=== PATIENT | female | born 1955 | race Caucasian/White ===

== ENCOUNTER 2020-09-23 19:11 | Emergency (ER) | payer OTHER ==
[~2020-09-23] VITALS: Ht 167.6 cm; Wt 81.8 kg
[2020-09-23 19:22] VITALS: BP 125/77
--- NOTE | 2020-09-23 19:44 | NUR ---
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
[2020-09-23] MEDS ORDERED: ketorolac tromethamine 15mg/ml inj. IM ONE (20:05)
[2020-09-23] MEDS ORDERED: HYDROcodone/acetaminophen 5mg/325mg tablet PO ONE (20:05)
[2020-09-23] MEDS ORDERED: IBUP-1984 PO (20:24)
== END 2020-09-23 20:34 | disposition home or self-care (01) ==
LOC: ER 19:11
DX: M25.562 Pain in left knee (principal); I10 Essential (primary) hypertension; Z90.89 Acquired absence of other organs; Z90.710 Acquired absence of both cervix and uterus; Z79.899 Other long term (current) drug therapy
CPT/HCPCS: 29505; 73564; 96372; 99283; J1885

== ENCOUNTER 2022-05-09 11:22 | Emergency (ER) | payer MEDICARE, OTHER ==
[~2022-05-09] VITALS: Ht 167.6 cm; Wt 84.0 kg
[2022-05-09 12:32] LABS: CLARITY,URINE CLEAR (Clear); COLOR,URINE YELLOW (Yellow); GLUCOSE, URINE NEGATIVE (Neg); KETONES,URINE 15 mg/dl (Neg); LEUKOCYTE ESTERASE ,URINE NEGATIVE (Neg); NITRITES, URINE NEGATIVE (Neg); OCCULT BLOOD,URINE NEGATIVE (Neg); PH,URINE 5.5 (4.8-8.0); PROTEIN,URINE NEGATIVE (Neg); UROBILINOGEN,URINE 0.2 E.U/dL (0.2-1.0)
[2022-05-09 12:34] LABS: URINE HCG NEGATIVE (NEG)
[2022-05-09 12:39] LABS: UA COLLECTION TYPE VOIDED
[2022-05-09 12:44] LABS: BASOPHILS % (AUTO) 0.8 % (0-1); EOSINOPHILS # (AUTO) 0.3 X10'3 (0-0.9); EOSINOPHILS % (AUTO) 5.2 % (0-6); HEMATOCRIT 44.2 % (35.0-45.0); HEMOGLOBIN 14.7 g/dl (12.0-16.0); LYMPHOCYTES # (AUTO) 1.6 X10'3 (1.1-4.8); LYMPHOCYTES % (AUTO) 28.3 % (21-51); MEAN CORPUSCULAR HEMOGLOBIN 30.4 PG (27.0-31.0); MEAN CORPUSCULAR HGB CONC 33.3 g/dL (33.0-36.5); MEAN CORPUSCULAR VOLUME 91.3 FL (78-98); MEAN PLATELET VOLUME 7.7 FL (7.4-10.4); MONOCYTES # (AUTO) 0.4 X10'3 (0-0.9); MONOCYTES % (AUTO) 7.6 % (2-12); NEUTROPHILS # (AUTO) 3.2 X10'3 (1.8-7.7); NEUTROPHILS % (AUTO) 58.1 % (42-75); PLATELET COUNT 297 X10'3 (140-440); RED BLOOD COUNT 4.84 X10'6 (4.20-5.60); RED CELL DISTRIBUTION WIDTH 13.3 % (11.5-14.5); WHITE BLOOD COUNT 5.5 X10'3 (4.5-11.0)
[2022-05-09 12:59] LABS: ALANINE AMINOTRANSFERASE 27 U/L (12-78); ALBUMIN 4.3 G/DL (3.4-5.0); ALBUMIN/GLOBULIN RATIO 1.2 (1.1-1.5); ALKALINE PHOSPHATASE 75 IU/L (46-116); ANION GAP 12 (8-16); ASPARTATE AMINO TRANSFERASE 19 U/L (10-37); BILIRUBIN,TOTAL 0.6 MG/DL (0.1-1.0); BLOOD UREA NITROGEN 9 MG/DL (7-18); CALCIUM 9.1 MG/DL (8.5-10.1); CHLORIDE 104 MMOL/L (99-107); CREATININE 0.69 MG/DL (0.40-0.90); GLUCOSE 104 MG/DL (70-104); LIPASE 176 U/L (73-393); POTASSIUM 3.9 MMOL/L (3.5-5.1); SODIUM 144 MMOL/L (135-145); TOTAL CARBON DIOXIDE 27.8 MMOL/L (24-32); eGFR 85 ML/MIN
--- NOTE | 2022-05-09 13:24 | NUR ---
CHARGE NURSE MARNIE RN NOTIFIED OF GENERAL ASSESSMENT DONE.
[2022-05-09] MEDS ORDERED: dicyclomine 10 MG capsule PO ONE (14:20)
[2022-05-09] MEDS ORDERED: iohexol 300mg/ml 100ml inj. ONE (14:27)
--- NOTE | 2022-05-09 15:48 | NUR ---
REVIEWED [facility]S GENERAL ASSESSMENT AND AGREE WITH FINDINGS.
[2022-05-09] MEDS ORDERED: DICY10CA88 PO (16:37)
[2022-05-09 16:44] VITALS: BP 129/68
== END 2022-05-09 17:01 | disposition home or self-care (01) ==
LOC: ER 11:23
DX: K59.00 Constipation, unspecified (principal); N28.1 Cyst of kidney, acquired; K76.89 Other specified diseases of liver; R10.12 Left upper quadrant pain; R10.32 Left lower quadrant pain; I10 Essential (primary) hypertension; Z90.89 Acquired absence of other organs; Z90.710 Acquired absence of both cervix and uterus; Z79.899 Other long term (current) drug therapy
CPT/HCPCS: 36415; 74177; 80053; 81003; 81025; 83690; 85025; 99285; J3490; J7030; Q9967

== ENCOUNTER 2024-04-20 10:51 | Emergency (ER) | payer MEDICARE, OTHER ==
[~2024-04-20] VITALS: Ht 167.6 cm; Wt 77.3 kg
[2024-04-20 10:54] VITALS: BP 165/72; PULSE 79; TEMP 98.2; O2SAT 98
[2024-04-20] MEDS ORDERED: HYDR-3965 PO (12:53)
[2024-04-20] MEDS: morphine 4 MG/ML inj SYRINge IM ONE (13:05)
[2024-04-20] MEDS: ondansetron 4mg rapidly disintigrating tab PO ONE (13:05)
[2024-04-20] MEDS: ketorolac trometh 15mg/ml vial 15 MG/ML ML IM ONE (13:05)
[2024-04-20 14:01] VITALS: RESP 18
== END 2024-04-20 14:04 | disposition home or self-care (01) ==
LOC: ER 10:51
DX: M25.461 Effusion, right knee (principal); M25.561 Pain in right knee; I10 Essential (primary) hypertension; Z88.5 Allergy status to narcotic agent; Z90.49 Acquired absence of other specified parts of digestive tract; Z90.710 Acquired absence of both cervix and uterus
CPT/HCPCS: 29505; 73564; 96372; 99284; J1885; J2270